=== PATIENT | male | born 1960 | race Caucasian/White ===

== ENCOUNTER 2021-07-12 14:38 | Inpatient (IN) | payer BC ==
[~2021-07-12] VITALS: Ht 175.3 cm; Wt 101.6 kg
[2021-07-12 15:34] LABS: HEMOGLOBIN 17.3 gm/dl (14.0-17.5); RED BLOOD COUNT 5.54 M/UL (4.20-5.50)
[2021-07-12 16:50] LABS: BUN/CREATININE RATIO 29 (0-10)
[2021-07-13 06:43] LABS: HEMOGLOBIN 15.7 gm/dl (14.0-17.5); RED BLOOD COUNT 5.11 M/UL (4.20-5.50)
[2021-07-13 06:44] LABS: WHITE BLOOD COUNT 13.1 K/UL (4.5-11.0)
[2021-07-13 07:10] LABS: BUN/CREATININE RATIO 27 (0-10)
[2021-07-13] MEDS ORDERED: LISINOPRIL5 MG PO (11:29)
[2021-07-13] MEDS ORDERED: CITALOPRAM HBR20 MG PO (11:29)
[2021-07-13] MEDS ORDERED: GLIPIZIDE10 MG PO (11:29)
[2021-07-13] MEDS ORDERED: NITROGLYCERIN0.4 MG SL (11:30)
[2021-07-13] MEDS ORDERED: METFORMIN HCL500 M2 PO (11:30)
[2021-07-13] MEDS ORDERED: MULTIVITAMIN1 EACH PO (11:30)
[2021-07-13] MEDS ORDERED: MOBIC15 MG PO (11:30)
[2021-07-14 06:37] LABS: RED BLOOD COUNT 4.88 M/UL (4.20-5.50)
[2021-07-14 06:47] LABS: WHITE BLOOD COUNT 17.5 K/UL (4.5-11.0)
[2021-07-14 07:53] LABS: BUN/CREATININE RATIO 35 (0-10)
[2021-07-14] MEDS ORDERED: ASPIRIN EC81 MG PO (12:56)
[2021-07-14] MEDS ORDERED: FARXIGA5 MG PO (12:56)
[2021-07-14] MEDS ORDERED: HYDROCODON-ACE1 EAC2 PO (12:56)
[2021-07-14] MEDS ORDERED: TOPROL XL25 MG PO (12:56)
== END 2021-07-14 13:53 | disposition home or self-care (01) | DRG 137 ==
LOC: ER1 14:38 → M/S 18:33 → CDU 18:33 → M/S 19:22
PROVIDERS: Dentist Oral and Maxillofacial Surgery; Emergency Medicine; ADMIT Internal Medicine Infectious Disease
PROC: 0WB30ZZ Excision of Oral Cavity and Throat, Open Approach (ICD-10-PCS; 2021-07-13)
PROC: 0CDXXZ1 Extraction of Lower Tooth, Multiple, External Approach (ICD-10-PCS; principal; 2021-07-13 13:00)
DX: M27.2 Inflammatory conditions of jaws (principal); K12.2 Cellulitis and abscess of mouth; I25.10 Atherosclerotic heart disease of native coronary artery without angina pectoris; F17.210 Nicotine dependence, cigarettes, uncomplicated; E11.628 Type 2 diabetes mellitus with other skin complications; Z96.653 Presence of artificial knee joint, bilateral; Z20.822 Contact with and (suspected) exposure to COVID-19; D89.89 Other specified disorders involving the immune mechanism, not elsewhere classified; Z98.890 Other specified postprocedural states; Z95.1 Presence of aortocoronary bypass graft; Z82.49 Family history of ischemic heart disease and other diseases of the circulatory system; Z83.3 Family history of diabetes mellitus; Z88.8 Allergy status to other drugs, medicaments and biological substances; Z79.899 Other long term (current) drug therapy; I25.2 Old myocardial infarction; Z79.82 Long term (current) use of aspirin; Z79.84 Long term (current) use of oral hypoglycemic drugs; K02.9 Dental caries, unspecified
CPT/HCPCS: 36415; 70487; 80048; 80053; 82550; 82553; 82962; 83036; 83605; 83735; 84484; 85025; 85027; 87040; 93005; 96374; 99285; J0295; J1100; J2001; J2270; J2370; J2405; J2704; J3010; J7030; J7120; Q9967; U0002